=== PATIENT | female | born 1985 | race Caucasian/White ===

== ENCOUNTER 2017-08-20 05:23 | Inpatient (IN) | payer BC ==
[2017-08-20] MEDS ORDERED: Sodium Chloride 0.9% 2.5 ML Syringe FLUSH PRN (05:36)
[2017-08-20] MEDS ORDERED: Sodium Chloride 0.9% 10 ML Syringe FLUSH PRN (05:36)
[2017-08-20] MEDS ORDERED: ceFAZolin 2 GM in Premix Bag 1 BAG IV ONE (05:36)
[2017-08-20] MEDS ORDERED: Oxytocin/0.9 % Sodium Chloride 30 UNIT/500 ML BAG IV SCH (05:45)
[2017-08-20] MEDS ORDERED: Citric Acid/Sodium Citrate Solution 30 ML Cup PO SCH (05:45)
[2017-08-20] MEDS: Lactated Ringers 1,000 ML IV SCH ×2 (06:05→07:40)
[2017-08-20] MEDS ORDERED: Morphine PF 1 MG/ML Amp ONE (07:24)
[2017-08-20] MEDS ORDERED: Ondansetron 4 MG/2 ML SDV ONE (07:24)
[2017-08-20] MEDS ORDERED: ePHEDrine 50 MG/ML SDV ONE (07:24)
[2017-08-20] MEDS ORDERED: ceFAZolin/Dextrose,Iso-Osmotic 2 GM/50 ML Duplex Bag IV ONE (07:24)
[2017-08-20] MEDS ORDERED: Oxytocin 10 Units/1 ML SDV ONE ×3 (08:08→08:37)
[2017-08-20] MEDS ORDERED: Phenylephrine/Normal Saline 100 MCG/ML 10 ML Syringe ONE (08:11)
[2017-08-20] MEDS ORDERED: Midazolam 1 MG/ML 2 ML SDV ONE (08:18)
[2017-08-20] MEDS ORDERED: diphenhydrAMINE 50 MG/ML SDV ONE (09:00)
[2017-08-20] MEDS ORDERED: Docusate Sodium 100 MG Cap PO PRN (09:34)
[2017-08-20] MEDS ORDERED: Ibuprofen 400 MG Tab PO PRN (09:34)
[2017-08-20] MEDS ORDERED: Benzocaine/Menthol 20%-0.5% Spray 78 GM Cannister TOP PRN (09:34)
[2017-08-20] MEDS ORDERED: Witch Hazel Medicated Pads 40/Jar TOP PRN (09:34)
[2017-08-20] MEDS ORDERED: Lanolin 100% Cream 7 GM Tube TOP PRN ×2 (09:34→10:00)
[2017-08-20] MEDS ORDERED: Ibuprofen 800 MG Tab PO PRN (09:34)
[2017-08-20] MEDS ORDERED: Bisacodyl 10 MG Supp RECTAL PRN ×2 (09:34→10:00)
[2017-08-20] MEDS ORDERED: Acetaminophen 500 MG Tab PO PRN ×2 (09:34)
[2017-08-20] MEDS ORDERED: oxyCODONE 5 MG Tab PO PRN (09:34)
[2017-08-20] MEDS ORDERED: diphenhydrAMINE 50 MG/ML SDV IVPUSH PRN ×2 (09:39→10:00)
[2017-08-20] MEDS ORDERED: Nalbuphine 10 MG/1 ML Vial IVPUSH PRN (09:39)
[2017-08-20] MEDS ORDERED: Naloxone 0.4 MG/ML Syringe IVPUSH PRN (09:39)
--- NOTE | 2017-08-20 09:39 | PCM.PREANE ---
Preanesthetic Assessment - Anesthesia/Transfusion/Family Hx Anesthesia History: Prior Anesthesia Without Reaction Family History of Anesthesia Reaction: No Transfusion History: No Prior Transfusion(s) Intubation History: Unknown - Review of Systems General: No Symptoms Pulmonary: No Symptoms Cardiovascular: No Symptoms Gastrointestinal: No Symptoms Neurological: No Symptoms Other: Reports: None - Physical Assessment Height: 1.63 m Weight: 101.605 kg ASA Class: 2 Mental Status: Alert & Oriented x3 Airway Class: Mallampati = 2 Dentition: Reports: Normal Dentition Thyro-Mental Finger Breadths: 3 Mouth Opening Finger Breadths: 3 ROM/Head Extension: Full Lungs: Clear to Auscultation, Normal Respiratory Effort Cardiovascular: Regular Rate, Regular Rhythm - Lab Values: Laboratory Last Values WBC 9.76 K/uL (4.0-11.0) 08/20/17 05:55 RBC 4.33 M/uL (4.30-5.90) 08/20/17 05:55 Hgb 11.7 g/dL (12.0-16.0) L 08/20/17 05:55 Hct 35.0 % (36.0-46.0) L 08/20/17 05:55 MCV 80.8 fL (80.0-98.0) 08/20/17 05:55 MCH 27.0 pg (27.0-32.0) 08/20/17 05:55 MCHC 33.4 g/dL (31.0-37.0) 08/20/17 05:55 RDW Std Deviation 42.3 fl (28.0-62.0) 08/20/17 05:55 RDW Coeff of Zheng 15 % (11.0-15.0) 08/20/17 05:55 Plt Count 197 K/uL (150-400) 08/20/17 05:55 MPV 10.90 fL (7.40-12.00) 08/20/17 05:55 Nucleated RBC % 0.0 /100WBC 08/20/17 05:55 Nucleated RBCs # 0 K/uL 08/20/17 05:55 POC Glucose 106 mg/dL (60-110) 08/20/17 09:30 Blood Type A POSITIVE 08/20/17 05:55 Antibody Screen NEGATIVE 08/20/17 05:55 - Allergies Allergies/Adverse Reactions: Allergies Allergy/AdvReac Type Severity Reaction Status Date / Time No Known Allergies Allergy Verified 08/14/17 12:42 - Blood Blood Available: No - Anesthesia Plan Pre-Op Medication Ordered: None - Acknowledgements Anesthesia Type Planned: Spinal Pt an Appropriate Candidate for the Planned Anesthesia: Yes Alternatives and Risks of Anesthesia Discussed w Pt/Guardian: Yes Pt/Guardian Understands and Agrees with Anesthesia Plan: Yes PreAnesthesia Questionnaire HEENT History: Reports: None Cardiovascular History: Reports: Syncope, Other (See Below) Other Cardiovascular History: syncope episodes in the past Gastrointestinal History: Reports: GERD Other Gastrointestinal History: heartburn with Genitourinary History: Reports: None [employer] History: Reports: , Spontaneous Psychiatric History: Reports: Depression Endocrine/Metabolic History: Reports: Diabetes, Gestational - Infectious Disease History Infectious Disease History: Reports: None - Past Surgical History Head Surgeries/Procedures: Reports: None HEENT Surgical History: Reports: Oral Surgery, Tonsillectomy Female Surgical History: Reports: Section - SUBSTANCE USE Smoking Status *Q: Former Smoker Tobacco Use Within Last Twelve Months: No Second Hand Smoke Exposure: No Recreational Drug Use History: No - HOME MEDS Home Medications: Home Meds PNV95/Ferrous Fumarate/FA [ Vitamin Tablet] 1 tab PO DAILY 08/14/17 [ History] glyBURIDE [Micronase] 1 tab PO DAILY 08/14/17 [History] - CURRENT (IN HOUSE) MEDS Current Meds: Current Medications Discontinued Medications Cefazolin Sodium/Dextrose (Ancef) Confirm Administered Dose 2 gm IV .STK-MED ONE Stop: 08/20/17 07:25 Citric Acid/Sodium Citrate (Bicitra Solution) 30 ml PO .ONCE AKI Last Admin: 08/20/17 07:45 Dose: 30 ml Diphenhydramine HCl (Benadryl) Confirm Administered Dose 50 mg .ROUTE .STK-MED ONE Stop: 08/20/17 09:01 Ephedrine Sulfate (Ephedrine Sulfate) Confirm Administered Dose 50 mg .ROUTE .STK-MED ONE Stop: 08/20/17 07:25 Cefazolin Sodium/Dextrose 2 gm (/ Premix) 50 mls @ 100 mls/hr IV ONETIME ONE Stop: 08/20/17 06:05 Lactated Ringer's (Ringers, Lactated) 1,000 mls @ 500 mls/hr IV .BOLUS AKI Last Admin: 08/20/17 07:40 Dose: 500 mls/hr Oxytocin/Sodium Chloride (Oxytocin 30 Unit/500 Ml-Ns) 30 unit in 500 mls @ 250 mls/hr IV TITRATE AKI Midazolam HCl (Versed 1 Mg/Ml) Confirm Administered Dose 2 mg .ROUTE .STK-MED ONE Stop: 08/20/17 08:19 Morphine Sulfate (Duramorph Pf) Confirm Administered Dose 1 mg .ROUTE .STK-MED ONE Stop: 08/20/17 07:25 Ondansetron HCl (Zofran) Confirm Administered Dose 4 mg .ROUTE .STK-MED ONE Stop: 08/20/17 07:25 Oxytocin (Pitocin) Confirm Administered Dose 10 unit .ROUTE .STK-MED ONE Stop: 08/20/17 08:09 Oxytocin (Pitocin) Confirm Administered Dose 10 unit .ROUTE .STK-MED ONE Stop: 08/20/17 08:10 Oxytocin (Pitocin) Confirm Administered Dose 10 unit .ROUTE .STK-MED ONE Stop: 08/20/17 08:38 Phenylephrine HCl (Phenylephrine In Ns 100 Mcg/Ml) Confirm Administered Dose 1 mg .ROUTE .STK-MED ONE Stop: 08/20/17 08:12 Sodium Chloride (Saline Flush) 10 ml FLUSH ASDIRECTED PRN PRN Reason: Keep Vein Open Sodium Chloride (Saline Flush) 2.5 ml FLUSH ASDIRECTED PRN PRN Reason: Keep Vein Open
[2017-08-20] MEDS ORDERED: fentaNYL 100 MCG/2 ML SDV IVPUSH PRN (09:41)
[2017-08-20] MEDS ORDERED: Acetaminophen/oxyCODONE 325-5 MG Tab PO PRN ×2 (09:41→10:00)
[2017-08-20] MEDS ORDERED: Lactated Ringers 1,000 ML IV SCH ×2 (09:45→10:00)
--- NOTE | 2017-08-20 09:49 | PCM.OPNOTE ---
- General Post-Op/Procedure Note Date of Surgery/Procedure: 08/20/17 Operative Procedure(s): Repeat section Findings: Male , Wt 3350 grams, Apgars 9 and 9. Normal uterus, ovaries, tubes. Grossly normal placenta with 3 vessel cord Pre Op Diagnosis: 39 weeks, Previous , GDMA2 Post-Op Diagnosis: Same Anesthesia Technique: Spinal Primary Surgeon: Valeria Hammondum Pathology: Placenta , Cord blood and gases samples Fluid Replacement, Intraop: 1,500 Output, Urine Amount: 250 EBL in mLs: 600 Complications: None Condition: Good
--- NOTE | 2017-08-20 09:56 | PCM.POSTAN ---
POST ANESTHESIA ASSESSMENT - MENTAL STATUS Mental Status: Alert, Oriented - RESPIRATORY Respiratory Status: Respiratory Rate WNL, Airway Patent, O2 Saturation Stable - CARDIOVASCULAR CV Status: Pulse Rate WNL, Blood Pressure Stable - GASTROINTESTINAL GI Status: No Symptoms - PAIN Pain Score: 0 - POST OP HYDRATION Hydration Status: Adequate & Stable
[2017-08-20] MEDS ORDERED: Ondansetron 4 MG/2 ML SDV IV PRN (10:00)
[2017-08-20] MEDS: Ketorolac 30 MG/ML SDV IVPUSH SCH ×3 (10:11→22:16)
--- NOTE | 2017-08-20 14:25 | OR ---
SURGEON: Valeria Obregon MD DATE OF PROCEDURE: 08/20/2017 PREOPERATIVE DIAGNOSES: 1. Term at 39 weeks' gestation. 2. Previous , desires repeat. 3. Gestational diabetes Type A2. POSTOPERATIVE DIAGNOSES: 1. Term at 39 weeks gestation. 2. Previous , desires repeat. 3. Gestational diabetes Type A2. 4. Delivered. ANESTHESIA: Spinal. ESTIMATED BLOOD LOSS: 600 mL. FLUIDS: 1500 mL, crystalloid. URINE OUTPUT: 250 mL. COMPLICATIONS: None. INDICATION: The patient is a 32-year-old G3, P1-0-1-1, at 39 weeks' gestation with history of one previous section and desires a repeat. Her was also complicated by gestational diabetes type A2 which was controlled adequately on glyburide. FINDINGS: A male infant, weight 3350 g, scores 9 and 9 at 1 and 5 minutes respectively. Normal uterus, tubes, and ovaries. Grossly normal placenta with 3-vessel cord. DESCRIPTION OF PROCEDURE: The patient was taken to the operating room where a spinal was performed and found to be adequate. She was then prepped and draped in normal sterile fashion in the dorsal supine position with a leftward tilt. She received 2 g of Ancef. SCDs in place. Appropriate time-out was held. A Pfannenstiel skin incision was made with a scalpel through her old incision and carried through to the underlying layer of fascia with the scalpel. The fascia was scored in the midline and extended laterally with Queen scissors. The superior aspect of this fascial incision was grasped with Dilcia clamps, elevated, and the underlying rectus muscle dissected off with the Queen. Attention was turned to the inferior aspect of this incision, which in a similar fashion was grasped and tented up with Dilcia clamps and underlying rectus muscle was dissected off with the Queen. The rectus muscle was then in the midline and the parietal peritoneum was identified and entered sharply. The peritoneal defect was then extended laterally by stretching. A self-retaining Feroz O retractor was placed into the abdominal cavity. The vesicouterine peritoneum was identified, grasped with pickup, and entered sharply with the Metzenbaum scissors. The incision was extended laterally and a bladder flap was created digitally. The lower uterine segment was then incised in a transverse fashion with the scalpel, and the uterine incision was extended upwards and downwards bluntly. The infant's head was then delivered atraumatically followed by the body. The bay was vigorous and cried spontaneously at . The cord was double clamped and cut, and the was handed over to the waiting nursery team. Cord blood and gas samples were collected. The placenta was delivered by controlled cord traction via massage. The uterus was cleaned of all clots and debris. The hysterotomy was repaired in 2 layers using 0 Vicryl suture, the first layer was closed in a running locked fashion and the second imbricating layer was performed to obtain excellent hemostasis. One [id number] hemostatic suture was placed in the lower uterine segment toward the right angle to control the bleed. Thereafter, the hysterotomy site was hemostatic. Copious irrigation was performed, and the paracolic gutters were cleaned of all clots and debris. The Feroz O retractor was then removed, and the peritoneal edges were identified and the peritoneum was closed with 2-0 Vicryl in a running fashion. The muscular layer was reapproximated with mattress sutures of the same stitch. The subfascial tissue was examined and found to have excellent hemostasis. The fascia was reapproximated with 0 Vicryl in a running fashion. The subcuticular tissues were irrigated and made hemostatic with electrocautery. The skin was closed in subcuticular fashion using 4-0 Monocryl suture. The patient tolerated the procedure well. Sponge, instrument, and needle counts were correct at the end of the delivery. The patient was taken to the recovery room in a stable condition and baby stable to nursery. TASHA / TRISTAN /[id number] KATHY
[2017-08-20] MEDS: Docusate Sodium 100 MG Cap PO SCH (22:17)
[2017-08-21] MEDS: Ketorolac 30 MG/ML SDV IVPUSH SCH ×2 (04:12→10:02)
--- NOTE | 2017-08-21 08:53 | PCM.PNPP ---
- General Info Date of Service: 08/21/17 Functional Status: Reports: Pain Controlled, Tolerating Diet, Ambulating, Urinating - Review of Systems General: Denies: Fever HEENT: Denies: Headaches Pulmonary: Denies: Shortness of Breath, Pleuritic Chest Pain Cardiovascular: Denies: Chest Pain, Palpitations Genitourinary: Denies: Dysuria, Incontinence Neurological: Denies: Confusion, Dizziness, Headache Psychiatric: Denies: Depression, Mood Lability, Anxiety - General Info Date of Service: 08/21/17 - Patient Data Vital Signs - Most Recent: Last Vital Signs Temp 37.0 C 08/21/17 08:00 Pulse 80 08/21/17 08:00 Resp 20 08/21/17 08:00 BP 127/60 08/21/17 08:00 Pulse Ox 98 08/21/17 08:00 Weight - Most Recent: 224 lb I&O - Last 24 Hours: Intake & Output 08/20/17 08/21/17 08/21/17 22:59 06:59 14:59 Intake Total 500 700 Output Total 2200 900 Balance 500 -1500 -900 Lab Results - Last 24 Hours: Laboratory Results - last 24 hr 08/20/17 08/20/17 08/21/17 Range/Units 08:31 09:30 05:40 Hgb 11.1 L (12.0-16.0) g/dL Hct 33.6 L (36.0-46.0) % Cord ABG pH 7.231 (7.18-7.38) Cord ABG Base Excess -8 (-10--2) Cord VBG pH 7.323 (7.25-7.45) Cord VBG Base Excess -7 (-10--2) POC Glucose 106 (60-110) mg/dL Med Orders - Current: Current Medications Bisacodyl (Dulcolax) 10 mg RECTAL .ONCE PRN PRN Reason: Constipation Diphenhydramine HCl (Benadryl) 25 mg IVPUSH Q4H PRN PRN Reason: Itching Stop: 08/21/17 09:40 Diphenhydramine HCl (Benadryl) 25 mg IVPUSH Q6H PRN PRN Reason: Itching or Nausea Docusate Sodium (Colace) 100 mg PO BID AKI Last Admin: 08/20/17 22:17 Dose: 100 mg Emollient Ointment (Lansinoh Hpa) 0 gm TOP ASDIRECTED PRN PRN Reason: Sore Nipples Fentanyl (Sublimaze) 25 - 50 mcg IVPUSH Q30M PRN PRN Reason: Pain Lactated Ringer's (Ringers, Lactated) 1,000 mls @ 125 mls/hr IV ASDIRECTED AKI Last Admin: 08/20/17 13:41 Dose: 125 mls/hr Ibuprofen (Motrin) 800 mg PO Q8H PRN PRN Reason: mild pain or fever Ketorolac Tromethamine (Toradol) 30 mg IVPUSH Q6H AKI Stop: 08/21/17 10:01 Last Admin: 08/21/17 04:12 Dose: 30 mg Nalbuphine HCl (Nubain) 5 mg IVPUSH Q3H PRN PRN Reason: Pruritis Stop: 08/21/17 09:40 Last Admin: 08/20/17 12:21 Dose: 5 mg Naloxone HCl (Narcan) 0.1 mg IVPUSH ONETIME PRN PRN Reason: Other Stop: 08/21/17 09:40 Ondansetron HCl (Zofran) 4 mg IV Q4H PRN PRN Reason: Nausea/Vomiting Last Admin: 08/20/17 12:21 Dose: 4 mg Oxycodone/Acetaminophen (Percocet 325-5 Mg) 1 - 2 tab PO Q6H PRN PRN Reason: Pain Stop: 08/22/17 14:00 Oxycodone/Acetaminophen (Percocet 325-5 Mg) 1 tab PO Q4H PRN PRN Reason: Pain (moderate 4-6) Oxycodone/Acetaminophen (Percocet 325-5 Mg) 2 tab PO Q4H PRN PRN Reason: Pain (moderate 4-6) Discontinued Medications Acetaminophen (Tylenol Extra Strength) 500 mg PO Q4H PRN PRN Reason: Pain Acetaminophen (Tylenol Extra Strength) 1,000 mg PO Q4H PRN PRN Reason: Pain Benzocaine/Menthol (Dermoplast Pain Relief 20%-0.5% Alfred) 78 gm TOP ASDIRECTED PRN PRN Reason: Perineal Comfort Measure Bisacodyl (Dulcolax) 10 mg RECTAL .ONCE PRN PRN Reason: Constipation Cefazolin Sodium/Dextrose (Ancef) Confirm Administered Dose 2 gm IV .STK-MED ONE Stop: 08/20/17 07:25 Citric Acid/Sodium Citrate (Bicitra Solution) 30 ml PO .ONCE AKI Last Admin: 08/20/17 07:45 Dose: 30 ml Diphenhydramine HCl (Benadryl) Confirm Administered Dose 50 mg .ROUTE .STK-MED ONE Stop: 08/20/17 09:01 Docusate Sodium (Colace) 100 mg PO BID PRN PRN Reason: Constipation Emollient Ointment (Lansinoh Hpa) 0 gm TOP ASDIRECTED PRN PRN Reason: Sore Nipples Ephedrine Sulfate (Ephedrine Sulfate) Confirm Administered Dose 50 mg .ROUTE .STK-MED ONE Stop: 08/20/17 07:25 Cefazolin Sodium/Dextrose 2 gm (/ Premix) 50 mls @ 100 mls/hr IV ONETIME ONE Stop: 08/20/17 06:05 Lactated Ringer's (Ringers, Lactated) 1,000 mls @ 500 mls/hr IV .BOLUS AKI Last Admin: 08/20/17 07:40 Dose: 500 mls/hr Oxytocin/Sodium Chloride (Oxytocin 30 Unit/500 Ml-Ns) 30 unit in 500 mls @ 250 mls/hr IV TITRATE AKI Lactated Ringer's (Ringers, Lactated) 1,000 mls @ 125 mls/hr IV ASDIRECTED AKI Ibuprofen (Motrin) 400 mg PO Q4H PRN PRN Reason: Pain Ibuprofen (Motrin) 800 mg PO Q6H PRN PRN Reason: Pain Midazolam HCl (Versed 1 Mg/Ml) Confirm Administered Dose 2 mg .ROUTE .STK-MED ONE Stop: 08/20/17 08:19 Morphine Sulfate (Duramorph Pf) Confirm Administered Dose 1 mg .ROUTE .STK-MED ONE Stop: 08/20/17 07:25 Ondansetron HCl (Zofran) Confirm Administered Dose 4 mg .ROUTE .STK-MED ONE Stop: 08/20/17 07:25 Oxycodone HCl (Oxycodone) 5 mg PO Q2H PRN PRN Reason: Pain Oxytocin (Pitocin) Confirm Administered Dose 10 unit .ROUTE .STK-MED ONE Stop: 08/20/17 08:09 Oxytocin (Pitocin) Confirm Administered Dose 10 unit .ROUTE .STK-MED ONE Stop: 08/20/17 08:10 Oxytocin (Pitocin) Confirm Administered Dose 10 unit .ROUTE .STK-MED ONE Stop: 08/20/17 08:38 Phenylephrine HCl (Phenylephrine In Ns 100 Mcg/Ml) Confirm Administered Dose 1 mg .ROUTE .STK-MED ONE Stop: 08/20/17 08:12 Sodium Chloride (Saline Flush) 10 ml FLUSH ASDIRECTED PRN PRN Reason: Keep Vein Open Sodium Chloride (Saline Flush) 2.5 ml FLUSH ASDIRECTED PRN PRN Reason: Keep Vein Open Witch Sherry (Tucks) 1 pad TOP ASDIRECTED PRN PRN Reason: comfort care - Infant Interaction Disposition, : [place] in Room with Family Feeding: Breastfed ; Nursed Well Support Person: - Recovery Exam Fundal Tone: Firm Fundal Level: At Umbilicus Fundal Placement: Midline Lochia Amount: Small Lochia Color: Rubra/Red Episiotomy/Laceration: None Bladder Status: Voiding Urinary Elimination: Voided - Exam General: Alert, Oriented HEENT: Pupils Equal Lungs: Clear to Auscultation, Normal Respiratory Effort Cardiovascular: Regular Rate, Regular Rhythm GI/Abdominal Exam: Normal Bowel Sounds Extremities: Non-Tender, Pedal Edema Skin: Warm Wound/Incisions: Healing Well Psy/Mental Status: Alert, Normal Affect, Normal Mood - Problem List & Annotations (1) delivery delivered SNOMED Code(s): 487323390 Code(s): O82 - ENCOUNTER FOR DELIVERY WITHOUT INDICATION Status: Acute Current Visit: No - Problem List Review Problem List Initiated/Reviewed/Updated: Yes - My Orders Last 24 Hours: My Active Orders 08/20/17 09:34 May Shower [RC] ASDIRECTED Up ad Susan [RC] ASDIRECTED Vital Signs [RC] PER UNIT ROUTINE 08/20/17 09:58 Resuscitation Status Routine 08/20/17 10:00 Patient Status [ADT] Routine Ambulate [RC] PER UNIT ROUTINE Communication Order [RC] PER UNIT ROUTINE Communication Order [RC] PER UNIT ROUTINE Communication Order [RC] Per Unit Routine May Shower [RC] ASDIRECTED RT Incentive Spirometry [RC] Q2HWA Vital Signs [RC] PER UNIT ROUTINE Acetaminophen/oxyCODONE [Percocet 325-5 MG] 1 tab PO Q4H PRN Acetaminophen/oxyCODONE [Percocet 325-5 MG] 2 tab PO Q4H PRN Bisacodyl [Dulcolax] 10 mg RECTAL .ONCE PRN Ibuprofen [Motrin] 800 mg PO Q8H PRN Ketorolac [Toradol] 30 mg IVPUSH Q6H Lactated Ringers [Ringers, Lactated] 1,000 ml IV ASDIRECTED Lanolin [Lansinoh HPA] See Dose Instructions TOP ASDIRECTED PRN Ondansetron [Zofran] 4 mg IV Q4H PRN diphenhydrAMINE [Benadryl] 25 mg IVPUSH Q6H PRN Abdominal Binder [OM.PC] Routine Assess Lochia [WOMSER] Per Unit Routine Assess Uterine Involution [WOMSER] Per Unit Routine Breast Pump [WOMSER] Per Unit Routine Peripheral IV Discontinue [OM.PC] Routine Sequential Compression Device [OM.PC] Per Unit Routine 08/20/17 10:01 Intake and Output [RC] Q4H 08/20/17 10:03 Notify Provider Intake and Out [RC] ASDIRECTED Notify Provider Vital Signs [RC] ASDIRECTED 08/20/17 21:00 Docusate Sodium [Colace] 100 mg PO BID 08/20/17 Lunch Regular Diet [DIET] - Assessment Assessment:: POD#1 s/p RLTS, stable and afebrile Doing well - Plan Plan:: No concerns today Continue routine care and aim for discharge tomorrow
[2017-08-21] MEDS: Docusate Sodium 100 MG Cap PO SCH ×2 (10:02→21:04)
[2017-08-21] MEDS: Acetaminophen/oxyCODONE 325-5 MG Tab PO PRN ×2 (15:32→22:23)
[2017-08-21] MEDS: Ibuprofen 800 MG Tab PO PRN (17:50)
[2017-08-22] MEDS: Ibuprofen 800 MG Tab PO PRN (04:14)
--- NOTE | 2017-08-22 08:10 | PCM.PNPP ---
<LizDiogenesAngela - Last Filed: 08/22/17 08:06> - General Info Date of Service: 08/22/17 Functional Status: Reports: Pain Controlled, Tolerating Diet, Ambulating, Urinating - Review of Systems General: Denies: Fever, Weakness, Fatigue Pulmonary: Denies: Shortness of Breath, Pleuritic Chest Pain, Cough Cardiovascular: Denies: Chest Pain, Palpitations, Dyspnea on Exertion Gastrointestinal: Denies: Abdominal Pain Genitourinary: Denies: Dysuria - General Info Date of Service: 08/22/17 - Patient Data Vital Signs - Most Recent: Last Vital Signs Temp 37.3 C 08/22/17 04:00 Pulse 64 08/22/17 04:00 Resp 18 08/22/17 04:00 BP 122/78 08/22/17 04:00 Pulse Ox 97 08/22/17 04:00 Weight - Most Recent: 224 lb Med Orders - Current: Current Medications Bisacodyl (Dulcolax) 10 mg RECTAL .ONCE PRN PRN Reason: Constipation Diphenhydramine HCl (Benadryl) 25 mg IVPUSH Q6H PRN PRN Reason: Itching or Nausea Docusate Sodium (Colace) 100 mg PO BID [facility] Last Admin: 08/21/17 21:04 Dose: 100 mg Emollient Ointment (Lansinoh Hpa) 0 gm TOP ASDIRECTED PRN PRN Reason: Sore Nipples Fentanyl (Sublimaze) 25 - 50 mcg IVPUSH Q30M PRN PRN Reason: Pain Lactated Ringer's (Ringers, Lactated) 1,000 mls @ 125 mls/hr IV ASDIRECTED [facility] Last Admin: 08/20/17 13:41 Dose: 125 mls/hr Ibuprofen (Motrin) 800 mg PO Q8H PRN PRN Reason: mild pain or fever Last Admin: 08/22/17 04:14 Dose: 800 mg Ondansetron HCl (Zofran) 4 mg IV Q4H PRN PRN Reason: Nausea/Vomiting Last Admin: 08/20/17 12:21 Dose: 4 mg Oxycodone/Acetaminophen (Percocet 325-5 Mg) 1 - 2 tab PO Q6H PRN PRN Reason: Pain Stop: 08/22/17 14:00 Oxycodone/Acetaminophen (Percocet 325-5 Mg) 1 tab PO Q4H PRN PRN Reason: Pain (moderate 4-6) Last Admin: 08/21/17 22:23 Dose: 1 tab Oxycodone/Acetaminophen (Percocet 325-5 Mg) 2 tab PO Q4H PRN PRN Reason: Pain (moderate 4-6) Discontinued Medications Acetaminophen (Tylenol Extra Strength) 500 mg PO Q4H PRN PRN Reason: Pain Acetaminophen (Tylenol Extra Strength) 1,000 mg PO Q4H PRN PRN Reason: Pain Benzocaine/Menthol (Dermoplast Pain Relief 20%-0.5% [place]) 78 gm TOP ASDIRECTED PRN PRN Reason: Perineal Comfort Measure Bisacodyl (Dulcolax) 10 mg RECTAL .ONCE PRN PRN Reason: Constipation Cefazolin Sodium/Dextrose (Ancef) Confirm Administered Dose 2 gm IV .STK-MED ONE Stop: 08/20/17 07:25 Citric Acid/Sodium Citrate (Bicitra Solution) 30 ml PO .ONCE AKI Last Admin: 08/20/17 07:45 Dose: 30 ml Diphenhydramine HCl (Benadryl) Confirm Administered Dose 50 mg .ROUTE .STK-MED ONE Stop: 08/20/17 09:01 Diphenhydramine HCl (Benadryl) 25 mg IVPUSH Q4H PRN PRN Reason: Itching Stop: 08/21/17 09:40 Docusate Sodium (Colace) 100 mg PO BID PRN PRN Reason: Constipation Emollient Ointment (Lansinoh Hpa) 0 gm TOP ASDIRECTED PRN PRN Reason: Sore Nipples Ephedrine Sulfate (Ephedrine Sulfate) Confirm Administered Dose 50 mg .ROUTE .STK-MED ONE Stop: 08/20/17 07:25 Cefazolin Sodium/Dextrose 2 gm (/ Premix) 50 mls @ 100 mls/hr IV ONETIME ONE Stop: 08/20/17 06:05 Lactated Ringer's (Ringers, Lactated) 1,000 mls @ 500 mls/hr IV .BOLUS AKI Last Admin: 08/20/17 07:40 Dose: 500 mls/hr Oxytocin/Sodium Chloride (Oxytocin 30 Unit/500 Ml-Ns) 30 unit in 500 mls @ 250 mls/hr IV TITRATE [facility] Lactated Ringer's (Ringers, Lactated) 1,000 mls @ 125 mls/hr IV ASDIRECTED [facility] Ibuprofen (Motrin) 400 mg PO Q4H PRN PRN Reason: Pain Ibuprofen (Motrin) 800 mg PO Q6H PRN PRN Reason: Pain Ketorolac Tromethamine (Toradol) 30 mg IVPUSH Q6H AKI Stop: 08/21/17 10:01 Last Admin: 08/21/17 10:02 Dose: 30 mg Midazolam HCl (Versed 1 Mg/Ml) Confirm Administered Dose 2 mg .ROUTE .STK-MED ONE Stop: 08/20/17 08:19 Morphine Sulfate (Duramorph Pf) Confirm Administered Dose 1 mg .ROUTE .STK-MED ONE Stop: 08/20/17 07:25 Nalbuphine HCl (Nubain) 5 mg IVPUSH Q3H PRN PRN Reason: Pruritis Stop: 08/21/17 09:40 Last Admin: 08/20/17 12:21 Dose: 5 mg Naloxone HCl (Narcan) 0.1 mg IVPUSH ONETIME PRN PRN Reason: Other Stop: 08/21/17 09:40 Ondansetron HCl (Zofran) Confirm Administered Dose 4 mg .ROUTE .STK-MED ONE Stop: 08/20/17 07:25 Oxycodone HCl (Oxycodone) 5 mg PO Q2H PRN PRN Reason: Pain Oxytocin (Pitocin) Confirm Administered Dose 10 unit .ROUTE .STK-MED ONE Stop: 08/20/17 08:09 Oxytocin (Pitocin) Confirm Administered Dose 10 unit .ROUTE .STK-MED ONE Stop: 08/20/17 08:10 Oxytocin (Pitocin) Confirm Administered Dose 10 unit .ROUTE .STK-MED ONE Stop: 08/20/17 08:38 Phenylephrine HCl (Phenylephrine In Ns 100 Mcg/Ml) Confirm Administered Dose 1 mg .ROUTE .STK-MED ONE Stop: 08/20/17 08:12 Sodium Chloride (Saline Flush) 10 ml FLUSH ASDIRECTED PRN PRN Reason: Keep Vein Open Sodium Chloride (Saline Flush) 2.5 ml FLUSH ASDIRECTED PRN PRN Reason: Keep Vein Open Witch Sherry (Tucks) 1 pad TOP ASDIRECTED PRN PRN Reason: comfort care - Infant Interaction Infant Disposition, : [place] in Room with Family Interaction: Holding Feeding: Breastfed Infant; Nursed Well Support Person: - Recovery Exam Fundal Tone: Firm Fundal Level: 1 Fingerbreadths Below Umbilicus Fundal Placement: Midline Lochia Amount: Scant Lochia Color: Rubra/Red Perineum Description: Intact, Minimal Bruising/Swelling Episiotomy/Laceration: None Bladder Status: Voiding Urinary Elimination: Voided - Exam General: Alert, Oriented Neck: Supple Lungs: Clear to Auscultation, Normal Respiratory Effort Cardiovascular: Regular Rate, Regular Rhythm GI/Abdominal Exam: Normal Bowel Sounds, Soft, No Distention Extremities: Normal Inspection, Non-Tender, Pedal Edema (trace) Psy/Mental Status: Alert - Problem List & Annotations (1) delivery delivered SNOMED Code(s): 000507039 Code(s): O82 - ENCOUNTER FOR DELIVERY WITHOUT INDICATION Status: Acute - Problem List Review Problem List Initiated/Reviewed/Updated: Yes - Assessment Assessment:: POD#2 s/p RLTS. Minimal pain and lochia. Discharge home today. - Plan Plan:: Discharge home today. Nothing in the vagina for 6 weeks. Continue PNV while breast feeding. RX for Percocet to use as needed for pain. No lifting greater than 15lbs for 6 weeks. Instructed patient to call if she develops fever greater than 101 or bleeding through a large pad an hour. F/U with [facility] in 2 and 6 weeks. 2 hr GTT will be done at 6 week visit. <Valeria Obregon - Last Filed: 08/22/17 17:12> - Patient Data Vital Signs - Most Recent: Last Vital Signs Temp 36.5 C 08/22/17 08:30 Pulse 81 08/22/17 08:30 Resp 18 08/22/17 08:30 BP 131/81 08/22/17 08:30 Pulse Ox 97 08/22/17 08:30 Med Orders - Current: Current Medications Discontinued Medications Acetaminophen (Tylenol Extra Strength) 500 mg PO Q4H PRN PRN Reason: Pain Acetaminophen (Tylenol Extra Strength) 1,000 mg PO Q4H PRN PRN Reason: Pain Benzocaine/Menthol (Dermoplast Pain Relief 20%-0.5% [place]) 78 gm TOP ASDIRECTED PRN PRN Reason: Perineal Comfort Measure Bisacodyl (Dulcolax) 10 mg RECTAL .ONCE PRN PRN Reason: Constipation Bisacodyl (Dulcolax) 10 mg RECTAL .ONCE PRN PRN Reason: Constipation Cefazolin Sodium/Dextrose (Ancef) Confirm Administered Dose 2 gm IV .STK-MED ONE Stop: 08/20/17 07:25 Citric Acid/Sodium Citrate (Bicitra Solution) 30 ml PO .ONCE AKI Last Admin: 08/20/17 07:45 Dose: 30 ml Diphenhydramine HCl (Benadryl) Confirm Administered Dose 50 mg .ROUTE .STK-MED ONE Stop: 08/20/17 09:01 Diphenhydramine HCl (Benadryl) 25 mg IVPUSH Q4H PRN PRN Reason: Itching Stop: 08/21/17 09:40 Diphenhydramine HCl (Benadryl) 25 mg IVPUSH Q6H PRN PRN Reason: Itching or Nausea Docusate Sodium (Colace) 100 mg PO BID PRN PRN Reason: Constipation Docusate Sodium (Colace) 100 mg PO BID [facility] Last Admin: 08/21/17 21:04 Dose: 100 mg Emollient Ointment (Lansinoh Hpa) 0 gm TOP ASDIRECTED PRN PRN Reason: Sore Nipples Emollient Ointment (Lansinoh Hpa) 0 gm TOP ASDIRECTED PRN PRN Reason: Sore Nipples Ephedrine Sulfate (Ephedrine Sulfate) Confirm Administered Dose 50 mg .ROUTE .STK-MED ONE Stop: 08/20/17 07:25 Fentanyl (Sublimaze) 25 - 50 mcg IVPUSH Q30M PRN PRN Reason: Pain Cefazolin Sodium/Dextrose 2 gm (/ Premix) 50 mls @ 100 mls/hr IV ONETIME ONE Stop: 08/20/17 06:05 Lactated Ringer's (Ringers, Lactated) 1,000 mls @ 500 mls/hr IV .BOLUS [facility] Last Admin: 08/20/17 07:40 Dose: 500 mls/hr Oxytocin/Sodium Chloride (Oxytocin 30 Unit/500 Ml-Ns) 30 unit in 500 mls @ 250 mls/hr IV TITRATE [facility] Lactated Ringer's (Ringers, Lactated) 1,000 mls @ 125 mls/hr IV ASDIRECTED [facility] Lactated Ringer's (Ringers, Lactated) 1,000 mls @ 125 mls/hr IV ASDIRECTED [facility] Last Admin: 08/20/17 13:41 Dose: 125 mls/hr Ibuprofen (Motrin) 400 mg PO Q4H PRN PRN Reason: Pain Ibuprofen (Motrin) 800 mg PO Q6H PRN PRN Reason: Pain Ibuprofen (Motrin) 800 mg PO Q8H PRN PRN Reason: mild pain or fever Last Admin: 08/22/17 04:14 Dose: 800 mg Ketorolac Tromethamine (Toradol) 30 mg IVPUSH Q6H [facility] Stop: 08/21/17 10:01 Last Admin: 08/21/17 10:02 Dose: 30 mg Midazolam HCl (Versed 1 Mg/Ml) Confirm Administered Dose 2 mg .ROUTE .STK-MED ONE Stop: 08/20/17 08:19 Morphine Sulfate (Duramorph Pf) Confirm Administered Dose 1 mg .ROUTE .STK-MED ONE Stop: 08/20/17 07:25 Nalbuphine HCl (Nubain) 5 mg IVPUSH Q3H PRN PRN Reason: Pruritis Stop: 08/21/17 09:40 Last Admin: 08/20/17 12:21 Dose: 5 mg Naloxone HCl (Narcan) 0.1 mg IVPUSH ONETIME PRN PRN Reason: Other Stop: 08/21/17 09:40 Ondansetron HCl (Zofran) Confirm Administered Dose 4 mg .ROUTE .STK-MED ONE Stop: 08/20/17 07:25 Ondansetron HCl (Zofran) 4 mg IV Q4H PRN PRN Reason: Nausea/Vomiting Last Admin: 08/20/17 12:21 Dose: 4 mg Oxycodone HCl (Oxycodone) 5 mg PO Q2H PRN PRN Reason: Pain Oxycodone/Acetaminophen (Percocet 325-5 Mg) 1 - 2 tab PO Q6H PRN PRN Reason: Pain Stop: 08/22/17 14:00 Oxycodone/Acetaminophen (Percocet 325-5 Mg) 1 tab PO Q4H PRN PRN Reason: Pain (moderate 4-6) Last Admin: 08/21/17 22:23 Dose: 1 tab Oxycodone/Acetaminophen (Percocet 325-5 Mg) 2 tab PO Q4H PRN PRN Reason: Pain (moderate 4-6) Oxytocin (Pitocin) Confirm Administered Dose 10 unit .ROUTE .STK-MED ONE Stop: 08/20/17 08:09 Oxytocin (Pitocin) Confirm Administered Dose 10 unit .ROUTE .STK-MED ONE Stop: 08/20/17 08:10 Oxytocin (Pitocin) Confirm Administered Dose 10 unit .ROUTE .STK-MED ONE Stop: 08/20/17 08:38 Phenylephrine HCl (Phenylephrine In Ns 100 Mcg/Ml) Confirm Administered Dose 1 mg .ROUTE .STK-MED ONE Stop: 08/20/17 08:12 Sodium Chloride (Saline Flush) 10 ml FLUSH ASDIRECTED PRN PRN Reason: Keep Vein Open Sodium Chloride (Saline Flush) 2.5 ml FLUSH ASDIRECTED PRN PRN Reason: Keep Vein Open Witch Sherry (Tucks) 1 pad TOP ASDIRECTED PRN PRN Reason: comfort care - Problem List & Annotations (1) delivery delivered SNOMED Code(s): 419863828 Code(s): O82 - ENCOUNTER FOR DELIVERY WITHOUT INDICATION Status: Acute (2) Gestational diabetes mellitus (GDM) controlled on oral hypoglycemic drug, antepartum SNOMED Code(s): 51163946, 70623310 Code(s): O24.415 - GESTATNL DIABETES IN PREG, CTRL BY ORAL HYPOGLYCEMIC DRUGS Status: Acute - Assessment Assessment:: Patient evaluated independently and agree with above assessment Patient would like to restart her Wellbutrin which was stopped at the start of her - Plan Plan:: Agree with above plan. Will agree for 2hr GTT at her visit. Pain meds and Wellbutrin prescribed
[2017-08-22 09:23] VITALS: BP 131/81
== END 2017-08-22 10:50 | disposition home or self-care (01) | DRG 540 ==
LOC: MW.OB 05:23
PROVIDERS: ADMIT Obstetrics & Gynecology; ATTEND Obstetrics & Gynecology
PROC: 10D00Z1 Extraction of Products of Conception, Low, Open Approach (ICD-10-PCS; principal; 2017-08-20)
PROC: 6A550ZT Pheresis of Cord Blood Stem Cells, Single (ICD-10-PCS; 2017-08-20)
DX: O34.211 Maternal care for low transverse scar from previous cesarean delivery (principal); O99.344 Other mental disorders complicating childbirth; O24.425 Gestational diabetes mellitus in childbirth, controlled by oral hypoglycemic drugs; F41.8 Other specified anxiety disorders; N85.8 Other specified noninflammatory disorders of uterus; Z3A.39 39 weeks gestation of pregnancy; Z37.0 Single live birth
CPT/HCPCS: 59025; 82803; 82962; 85014; 85018; 85027; 86850; 86900; 86901; 88305; A9270-GY; J0690; J1200; J1885; J2250; J2274; J2300; J2405; J2590; J7120

== ENCOUNTER 2024-03-05 16:48 | Emergency (ER) | payer BC ==
[2024-03-05] MEDS: Sodium Chloride 0.9% 1,000 ML IV ONE (18:12)
[2024-03-05 18:37] LABS: BASOPHILS ABSOLUTE AUTO 0.07 K/uL (0.00-0.20); BASOPHILS PERCENT AUTO 0.9 % (0.0-1.0); HEMOGLOBIN 14.4 g/dL (12.0-16.0); IMMATURE GRAN ABSOLUTE AUTO 0.02 K/uL (0.00-0.05); IMMATURE GRAN PERCENT AUTO 0.3 % (0.0-0.4); LYMPHOCYTES ABSOLUTE AUTO 2.11 K/uL (1.00-4.80); LYMPHOCYTES PERCENT AUTO 27.9 % (24.0-44.0); MEAN CORPUSCULAR HEMOGLOBIN 28.9 pg (28.0-32.0); MEAN CORPUSCULAR HGB CONC 34.3 g/dL (32.0-36.0); MEAN CORPUSCULAR VOLUME 84.3 fL (83.0-99.0); MEAN PLATELET VOLUME 10.3 fL (9.4-12.3); MONOCYTES ABSOLUTE AUTO 0.61 K/uL (0.00-0.80); MONOCYTES PERCENT AUTO 8.1 % (0.0-8.0); NEUTROPHILS ABSOLUTE AUTO 4.45 K/uL (1.80-7.70); NEUTROPHILS PERCENT AUTO 58.8 % (41.0-71.0); PLATELET COUNT,PLT 297 K/uL (150-400); RED BLOOD CELL COUNT 4.98 M/uL (4.10-5.30); WHITE BLOOD CELL COUNT,WBC 7.56 K/uL (3.9-11.3)
[2024-03-05 19:07] LABS: ALANINE AMINOTRANSFERASE,ALT 28 IU/L (14-63); ALBUMIN 3.6 g/dL (3.4-5.0); ALKALINE PHOSPHATASE 83 U/L (46-116); ASPARTATE AMNIOTRANSFERASE,AST 23 IU/L (15-37); BILIRUBIN TOTAL 0.4 mg/dL (0.2-1.0); BLOOD UREA NITROGEN,BUN 10 mg/dL (7.0-18.0); CALCIUM 8.9 mg/dL (8.5-10.1); CARBON DIOXIDE,CO2 25.1 mmol/L (21.0-32.0); CHLORIDE,CL 106 mmol/L (98-107); CREATININE 1.1 mg/dL (0.6-1.0); GLUCOSE RANDOM 119 mg/dL (74-106); MAGNESIUM 1.9 mg/dL (1.8-2.4); POTASSIUM,K 3.7 mmol/L (3.5-5.1); PROTEIN TOTAL,TP 7.2 g/dL (6.4-8.2); SODIUM,NA 141 mmol/L (136-145); TSH ULTRASENSITIVE 2.19 uIU/mL (0.36-3.74)
[2024-03-05 19:11] LABS: ESTIMATED GFR 65 mL/min (>60)
[2024-03-05] MEDS ORDERED: Propranolol 40 MG Tab PO ONE (19:25)
[2024-03-05] MEDS: Propranolol 10 MG Tab PO ONE (19:54)
[2024-03-05 20:13] LABS: CORONAVIRUS COVID-19 NAA NEGATIVE (NEGATIVE); INFLUENZA A NAA NEGATIVE (NEGATIVE); INFLUENZA B NAA NEGATIVE (NEGATIVE)
[2024-03-06 01:31] VITALS: BP 117/83; PULSE 99
== END 2024-03-05 20:57 | disposition home or self-care (01) ==
LOC: MW.ED 16:48
DX: R20.8 Other disturbances of skin sensation (principal); Z79.899 Other long term (current) drug therapy; Z75.8 Other problems related to medical facilities and other health care
CPT/HCPCS: 0240U; 36415; 71045; 80053; 83735; 84443; 84484; 85025; 85379; 93005; 99285; A9270; J7030; 93010; 99283